=== PATIENT | female | born 1955 | race Two or more races ===

== ENCOUNTER 2023-11-15 14:07 | Outpatient (CLI) | payer MEDICARE, MEDICAID ==
[~2023-11-15 14:07] MED LIST: CALC-965 PO; DULO-31 PO; ERGO500014 PO; OMEP-84 PO
== END 2023-11-15 23:59 | disposition home or self-care (01) ==
LOC: RAD 14:07
PROVIDERS: ATTEND Urology
DX: K59.00 Constipation, unspecified (principal); R14.3 Flatulence; Z87.440 Personal history of urinary (tract) infections
CPT/HCPCS: 74018